=== PATIENT | male | born 1965 | race Caucasian/White ===

== ENCOUNTER 2020-07-21 07:04 | Day surgery (SDC) | payer BC, SELFPAY ==
--- NOTE | 2020-07-20 11:43 | P.CONAN_ITS ---
Documented by User: Amairani Bowers 07/20/20 11:45 HPI - Anesthesia Eval Consult details Narrative: 55yo M for Colonoscopy +ETOH [facility] Past Medical History Medical History Arthritis CAD (coronary artery disease) Elevated cholesterol ETOH abuse Gout DOMENICA (obstructive sleep apnea) Surgical History Surgical History H/O colonoscopy History of cardiac cath Social History Social History Smoking Status: Former smoker Use of substances other than those prescribed or required for medical reasons: No Advance Directives: No Advance Directives Information Provided: Yes Meds Allergies Allergy/AdvReac Type Severity Reaction Status Date / Time No Known Allergies Allergy Verified 07/21/20 07:20 Home Medications Medication Instructions Recorded Confirmed Last Taken Type aspirin 81 mg PO DAILY 07/21/20 07/21/20 07/19/20 History pravastatin 1 tab PO DAILY 07/21/20 07/21/20 Unknown History Exam Exam Date and Time: July 20, 2020 1143 Assessment and Plan Assessment Anesthesia Assessment: Chart Reviewed Documented by User: Shagufta Watkins 07/21/20 08:02 [facility] Past Medical History Medical History Arthritis CAD (coronary artery disease) Elevated cholesterol ETOH abuse Gout DOMENICA (obstructive sleep apnea) Surgical History Surgical History H/O colonoscopy History of cardiac cath Social History Social History Smoking Status: Former smoker Use of substances other than those prescribed or required for medical reasons: No Advance Directives: No Advance Directives Information Provided: Yes Meds Allergies Allergy/AdvReac Type Severity Reaction Status Date / Time No Known Allergies Allergy Verified 07/21/20 07:20 Home Medications Medication Instructions Recorded Confirmed Last Taken Type aspirin 81 mg PO DAILY 07/21/20 07/21/20 07/19/20 History pravastatin 1 tab PO DAILY 07/21/20 07/21/20 Unknown History Exam Airway Mallampati Class: II TM Dist: >3cm Neck ROM: Full Loose/Missing/Broken Teeth: No Heart: RRR Lungs: CTA Assessment and Plan Assessment Anesthesia Assessment: Anesthesia Plan Discussed and Chart Reviewed Final Anesthetic Review NPO: Yes ASA Class: III Final Preanesthetic Review: Meds/Allgs Chart Reviewed, Consent Obtained/Reviewed and Anes Risks/Benef Reviewed Patient Risk: Intermediate Procedure Risk: Low Anesthetic Plan Anesthetic Plan: MAC: Disposition: Standard PACU
[2020-07-21 07:21] VITALS: BMI 28.7
[2020-07-21 07:27] VITALS: BP 129/76; PULSE 48; RESP 16; TEMP 36.4; O2SAT 96
[2020-07-21] MEDS: Lactated Ringers 1,000 ML 100 ML IVCONT (07:34)
[2020-07-21 09:25] VITALS: BP 131/69; PULSE 45; RESP 16; TEMP 36.6; O2SAT 96
--- NOTE | 2020-07-21 09:26 | PM.OP ---
Brief Operative Note Date of Service: 07/21/20 Pre-op diagnosis: Screening Post-op diagnosis: other (Colon polyp) Procedure: Colonoscopy to the cecum and TI with biopsy and removal of polyp Surgeon: Magdy Mario Anesthesia: MAC Estimated blood loss (mL): 3.0 Pathology: other (A. Ascending colon polyp) Condition: stable Disposition: PACU
[2020-07-21 09:42] VITALS: BP 136/81; PULSE 50; RESP 16; TEMP 36.6; O2SAT 96
--- NOTE | 2020-07-21 10:17 | OP_ITS ---
SURGEON: Magdy Mario MD INDICATIONS: The patient presents for evaluation of colorectal cancer screening and personal history of tubular adenoma of the colon. Full consent has been obtained from him for this, including risks of bleeding and perforation. PREOPERATIVE DIAGNOSIS: POSTOPERATIVE DIAGNOSIS: PROCEDURE PERFORMED: Colonoscopy to cecum and terminal ileum with biopsy and removal of polyp. ESTIMATED BLOOD LOSS: COMPLICATIONS: ANESTHESIA: Monitored anesthesia care. ASSISTANTS: SPECIMENS: PREOPERATIVE DIAGNOSES: Colorectal cancer screening and personal history of tubular adenoma of the colon. POSTOPERATIVE DIAGNOSES: Colorectal cancer screening and personal history of tubular adenoma of the colon, colon polyp, diverticulosis and internal hemorrhoids. DESCRIPTION OF PROCEDURE: The patient was placed in the left lateral decubitus position. The digital rectal exam revealed no abnormalities. The Olympus video pediatric colonoscope was entered into the rectum and advanced easily to the cecum. Once in the cecum, I did identify normal-appearing cecal pouch with appendiceal orifice and a normal-appearing ileocecal valve. The terminal ileum was cannulated and appeared normal. The scope was withdrawn back in the colon. The entire cecum and ileocecal valve appeared normal. The scope was slowly withdrawn assessing all mucosal surfaces carefully. Preparation was excellent. In the proximal ascending colon, was a flat approximately 5 mm polyp, which was biopsied and completely removed with cold biopsy forceps. I did not visualize any other polyps, colitis, nor angiodysplasia. There was a mild amount of sigmoid diverticulosis. In the rectum, scope was retroflexed visualizing small internal hemorrhoids, but no other pathology. The rectal mucosa appeared normal. The scope was straightened out and withdrawn from the patient. He tolerated the procedure well and was returned to the recovery area in stable condition. IMPRESSION: 1. Small colon polyp, status post biopsy and removal. 2. Diverticulosis. 3. Internal hemorrhoids. PLAN: The results of the pathology will be checked. I would recommend a repeat colonoscopy in 5 years for further surveillance. He will otherwise see me on a p.r.n. basis. He was advised to resume his aspirin in [address]/WISAM / [id number]
== END 2020-07-21 10:07 | disposition home or self-care (01) ==
PROVIDERS: PCP Internal Medicine; Visit Provider Internal Medicine
PROC: 0DJD8ZZ Inspection of Lower Intestinal Tract, Via Natural or Artificial Opening Endoscopic (ICD-10-PCS; CPT 45378; principal; 2020-07-21 08:20)
DX: Z12.11 Encounter for screening for malignant neoplasm of colon (principal); D12.2 Benign neoplasm of ascending colon; K57.30 Diverticulosis of large intestine without perforation or abscess without bleeding; K64.8 Other hemorrhoids; Z86.010 Personal history of colon polyps
CPT/HCPCS: 45380; 88305; J3010

== ENCOUNTER 2022-12-26 14:34 | Outpatient (AMB) | payer BC, SELFPAY ==
--- NOTE | 2022-12-26 15:00 | A.OFFVIS_ITS ---
Intake Vital Signs 12/26/22 15:01 Height 5 ft 10 in Weight 195 lb BMI 28.0 Intake Visit Reasons: FC - right ankle fx Intake Note: Rashard 57 yr old male presents today for his right ankle injury. States about 1 month ago, while exercising he felt a sharp pain, later at bed time he noticed his ankle was swollen. Seen in urgent care where he was given a air cast. Currently states he still has swelling and pa in with weight bearing. States he has concerns of a fracture. Denies numbness or tingling. Xrays updated in office. Allergies No Known Allergies Allergy (Verified 12/26/22 15:05) HPI FC - right ankle fx HPI Details 57-year-old male who presents in the off ice today, as a new patient, for an evaluation of right ankle pain. The patient reports a month ago, in 11/2022, he was exercising and felt a sharp pain in the right ankle. He states later that day at bed time he noticed his ankle had edema. He confirms being seen in Urgent Care where he was placed in an air cast. He states he still has edema and pain with weight bearing. He is concerned the ankle is fractured. He denies numbness or tingling. He states he injured the ankle doing circles. He works with [employer]. He works in [place] and states most of the pain is when he is driving. He has a trip planned with his son to be gone for 5 weeks. 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 Review of Systems Const All systems reviewed & are unremarkable except as noted in HPI and below Physical Exam Vital Signs: BMI result Body Mass Index 28.0 Const General: cooperative and no acute distress Orientation/consciousness: patient oriented x3 Resp Effort & Inspection: normal respiratory effort and able to speak in complete sentences Cardio Rate: regular rate Peripheral pulses: Peripheral pulses 2+ throughout GI Palpation (GI): Soft to palpation Skin General skin exam: no rashes or lesions noted Lesions: no lesions Rashes: no rashes Neuro General: patient oriented x3 Extrem Other: Right ankle: Lateral moderate edema. Able to dorsiflex and plantarflex with minimal discomfort. Able to perform inversion and eversion slight motion with pain. Sensation intact. Pedal pulse intact. Assessment & Plan Assessment & Plan (1) Right ankle sprain: Code(s): S93.401A - Sprain of unspecified ligament of right ankle, initial encounter Qualifiers: Encounter type: initial encounter Involved ligament of ankle: unspecified ligament Qualified Code(s): S93.401A - Sprain of unspecified ligament of right ankle, initial encounter Plan Mr. Figueroa is a 57-year-old male who presents in the office today, as a new patient, for an evaluation of right ankle pain. The patient reports a month ago, in 11/2022, he was exercising and felt a sharp pain in the right ankle. He states later that day at bed time he noticed his ankle had edema. He confirms being seen in Urgent Care where he was placed in an air cast. He states he still has edema and pain with weight bearing. He is concerned the ankle is fractured. He denies numbness or tingling. He states he injured the ankle doing circles. 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 He works in [place] and states most of the pain is when he is driving. He has a trip planned with his son to be gone for 5 weeks. The patient will be placed in a tall walking boot, off the shelf, while in the office today. He was educated in the importance of elevating the ankle about the level of his heart. He demonstrates understanding. He was instructed that due to the boot he is unable to drive. He was given an out of work note until his follow up. He plans on leaving on a trip on 01/27 for 5 weeks. I would like to see him back before he leaves. Follow up will be on 01/17/2023, or sooner if needed. X-rays of the right ankle which were obtained while in the office today and were reviewed by me, Estrellita Viveros PA-C, revealed no acute fracture or dislocation. Small defect at the distal fibula that may correlate to an avulsion injury. Orders: Orders XR ankle RT min 3V 12/26/22 M25.579 - Pain in unspecified ankle and joints of unspecified foot Patient Instructions: Scribed for Estrellita Viveros PA-C by Kim Ambriz electromedical service engineer, on 12/26/2022 at 2:37 pm, EST. Coding Level of Care Code New Pt Level 4 (33219) Diagnoses Sprain of right ankle, unspecified ligament, initial encounter S93.401A Encounter type: initial encounter Involved ligament of ankle: unspecified ligament
[2022-12-26 15:01] VITALS: BMI 28.0
== END 2022-12-26 15:34 | disposition home or self-care (01) ==
PROVIDERS: PCP Internal Medicine; Visit Provider Physician Assistant
DX: S93.401A Sprain of unspecified ligament of right ankle, initial encounter (principal)
CPT/HCPCS: 99203

== ENCOUNTER 2022-12-26 17:24 | Outpatient (REF) | payer BC, SELFPAY ==
--- NOTE | ~2022-12-26 | XR_ITS ---
EXAMINATION: XR ANKLE, RIGHT CLINICAL INFORMATION: Ankle pain COMPARISON: Radiographs 11/14/2022 TECHNIQUE: AP, lateral, and mortise views of the right ankle. FINDINGS: Soft tissue swelling about the lateral malleolus progressed from prior. There is a similar punctate osseous fragment along the lateral talar process which may reflect sequelae of prior avulsion fracture. Large tibiotalar joint effusion new from prior consider correlation with any symptoms of synovitis Mild degenerative changes of the ankle with degenerative spurring of the dorsal midfoot and tibiotalar joint and plantar calcaneal spurring. XR/XR ankle RT min 3V IMPRESSION: 1. Soft tissue swelling about the lateral malleolus progressed from prior. There is a similar punctate osseous fragment along the lateral talar process which may reflect sequelae of prior avulsion fracture. 2. Large tibiotalar joint effusion new from prior consider correlation with any symptoms of synovitis. 3. Mild degenerative changes of the ankle.
== END 2022-12-26 17:25 | disposition home or self-care (01) ==
LOC: HO.HOSX 17:24
PROVIDERS: Visit Provider Physician Assistant
DX: S93.401D Sprain of unspecified ligament of right ankle, subsequent encounter (principal); M25.571 Pain in right ankle and joints of right foot; X58.XXXD Exposure to other specified factors, subsequent encounter
CPT/HCPCS: 73610

== ENCOUNTER → 2023-01-02 14:43 | Outpatient (BNVA) | payer BC, SELFPAY | PROVIDERS: PCP Internal Medicine; Visit Provider Physician Assistant ==

== ENCOUNTER 2023-01-17 13:05 | Outpatient (AMB) | payer BC, SELFPAY ==
--- NOTE | 2023-01-17 13:10 | MHC.OFFVIS ---
Intake Intake Visit Reasons: OV- right ankle fx-follow up Intake Note: Rashard is a 57 year old male who presents today for a follow up for his ankle pain. Patient reports he is doing better. He states wearing the boot off and on during the day. Allergies No Known Allergies Allergy (Verified 01/17/23 13:13) HPI OV- right ankle fx-follow up HPI Details 58-year-old male who presents in the office today for a follow up of a right ankle sprain, which occurred in 11/2022 status post exercising. The patient reports he is doing better. He states he wears the boot intermittent through out the day. He reports an occasional sharp stabbing sensation between the 4th and 5th metatarsal heads, but does not have tenderness to palpation and reports it is intermittent. 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 No ecchymosis, erythema, or edema. Patient is able to demonstrate dorsiflexion, plantar flexion, pronation and supination. Negative anterior drawer. Sensation intact. Pedal Pulse intact. Assessment & Plan Assessment & Plan (1) Right ankle sprain: Code(s): S93.401A - Sprain of unspecified ligament of right ankle, initial encounter Qualifiers: Encounter type: initial encounter Involved ligament of ankle: unspecified ligament Qualified Code(s): S93.401A - Sprain of unspecified ligament of right ankle, initial encounter Plan Mr. Figueroa is a 58-year-old male who presents in the office today for a follow up of a right ankle sprain, which occurred in 11/2022 status post exercising. The patient reports he is doing better. He states he wears the boot intermittent through out the day. He reports an occasional sharp stabbing sensation between the 4th and 5th metatarsal heads, but does not have tenderness to palpation and reports it is intermittent. The patient will return to normal activities as tolerated. If he continues to have pain between the 4th and 5th metatarsals, he will contact the office and I will place a referral to Podiatry for further evaluation and treatment. Follow up will be PRN, or sooner if needed. Patient Instructions: Scribed for Estrellita Viveros PA-C by Kim Ambriz medical scientific liaison, on 01/17/2023 at 1:16 pm, EST. Coding Level of Care Code Est Pt Level 3 (25403) Diagnoses Sprain of right ankle, unspecified ligament, initial encounter S93.401A Encounter type: initial encounter Involved ligament of ankle: unspecified ligament
== END 2023-01-17 13:47 | disposition home or self-care (01) ==
PROVIDERS: PCP Internal Medicine; Visit Provider Physician Assistant
DX: S93.401D Sprain of unspecified ligament of right ankle, subsequent encounter (principal)
CPT/HCPCS: 99213

== ENCOUNTER → 2023-01-17 13:05 | Outpatient (BNVA) | payer BC, SELFPAY | PROVIDERS: PCP Internal Medicine; Visit Provider Physician Assistant ==

== ENCOUNTER 2023-05-12 06:16 | Outpatient (REF) | payer BC, SELFPAY ==
--- NOTE | ~2023-05-12 | XR_ITS ---
EXAMINATION: XR AP STANDING VIEW OF BILATERAL KNEES XR KNEE, LEFT CLINICAL INFORMATION: Pain in unspecified knee. COMPARISON: None. TECHNIQUE: AP standing view of bilateral knees. Lateral and sunrise views of the left knee. FINDINGS: Left knee: Large suprapatellar effusion. Moderate medial joint space narrowing. Tiny marginal osteophytes. Right knee: Single AP view of the right knee demonstrates mild medial joint space narrowing. XR/XR knee standing BI IMPRESSION: 1. Large left suprapatellar effusion with moderate medial joint space narrowing. 2. Single AP view of the right knee demonstrates mild medial joint space narrowing.
--- NOTE | ~2023-05-12 | XR_ITS ---
EXAMINATION: XR AP STANDING VIEW OF BILATERAL KNEES XR KNEE, LEFT CLINICAL INFORMATION: Pain in unspecified knee. COMPARISON: None. TECHNIQUE: AP standing view of bilateral knees. Lateral and sunrise views of the left knee. FINDINGS: Left knee: Large suprapatellar effusion. Moderate medial joint space narrowing. Tiny marginal osteophytes. Right knee: Single AP view of the right knee demonstrates mild medial joint space narrowing. XR/XR knee LT 2V IMPRESSION: 1. Large left suprapatellar effusion with moderate medial joint space narrowing. 2. Single AP view of the right knee demonstrates mild medial joint space narrowing.
== END 2023-05-12 06:17 | disposition home or self-care (01) ==
LOC: HO.HOSX 06:16
PROVIDERS: Visit Provider Physician Assistant
DX: M25.562 Pain in left knee (principal)
CPT/HCPCS: 73560; 73565

== ENCOUNTER 2023-05-12 08:42 | Outpatient (AMB) | payer BC, SELFPAY ==
--- NOTE | 2023-05-12 08:54 | MHC.OFFVIS ---
Intake Vital Signs 05/12/23 09:10 Height 5 ft 10 in Weight 195 lb BMI 28.0 Intake Visit Reasons: NewProb- LT Knee pain x2 weeks Intake Note: Rashard is a 58 year old male who presents today for a evaluation of his left knee pain. Patient reports off and on pain for 2 weeks. He states that his pain is worse when sitting for a long time, using the stairs and walking. Patient reports icing his knee with elevation which gave him mild relief. His pain today is a way better than it was last week per patient. Patient takes Advil which give him relief. Allergies No Known Allergies Allergy (Verified 05/12/23 09:09) HPI NewProb- LT Knee pain x2 weeks HPI Details 58-year-old male who presents in the office today for an evaluation of left knee pain. The patient reports intermittent pain for 2 weeks. He reports the pain increases with use of stairs, when sitting for long period of time, and ambulating. He reports applying ice gives mild relief. He states his pain while in the office has improved since last week. He confirms taking Advil which gives him relief. 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 No ecchymosis, erythema, or joint effusion. No tenderness to palpation to the medial or lateral joint lines. Full knee extension and flexion. Negative Cheko's. NVI. Assessment & Plan Assessment & Plan (1) Left knee pain: Code(s): M25.562 - Pain in left knee Qualifiers: Chronicity: unspecified Qualified Code(s): M25.562 - Pain in left knee Plan Mr. Figueroa is a 58-year-old male who presents in the office today for an evaluation of left knee pain. The patient reports intermittent pain for 2 weeks. He reports the pain increases with use of stairs, when sitting for long period of time, and ambulating. He reports applying ice gives mild relief. He states his pain while in the office has improved since last week. He confirms taking Advil which gives him relief. The patient has a history of gout. I asked if this felt a gout flare up and he reports it could have been, but his symptoms have drastically improved. Last week was the peak of his symptoms, however he also reports he was doing deep squats with weights which could having contributed to over use. We discussed the option of cortisone injection that would help with any remaining irritation, inflammation, or gouty flare up as a possibility. However, he reports his symptoms are improving, therefore he would like to defer at this time. Should his symptoms return or worsen, he will contact the office for a cortisone injection. Follow up will be PRN, or sooner if needed. X-rays of the left knee which were obtained while in the office today and were reviewed by me, Estrellita Viveros PA-C, revealed No acute fracture or dislocation. Slight narrowing of the medial compartment. Orders: Orders XR knee standing BI Today M25.569 - Pain in unspecified knee XR knee LT 2V Today M25.569 - Pain in unspecified knee Patient Instructions: Scribed for Estrellita Viveros PA-C by Kim Ambriz medical reception, on 05/12/2023 at 8:46 am, EST. Coding Level of Care Code Est Pt Level 3 (63571) Diagnoses Left knee pain, unspecified chronicity M25.562 Chronicity: unspecified
[2023-05-12 09:10] VITALS: BMI 28.0
== END 2023-05-12 09:26 | disposition home or self-care (01) ==
PROVIDERS: PCP Internal Medicine; Visit Provider Physician Assistant
DX: M25.562 Pain in left knee (principal)
CPT/HCPCS: 99213

== ENCOUNTER 2024-09-07 18:23 | Emergency (ER) | payer BC, SELFPAY ==
--- NOTE | 2024-09-07 19:04 | ED_ITS ---
HPI - Head Injury General Chief complaint: Wound/Laceration Stated complaint: Lip Lac Time Seen by Provider: 09/07/24 22:23 History of Present Illness ED Provider: Lobo ROMERO Narrative: The patient is a 59-year-old male who was working on his car when he accident ally hit himself in the face with a wrench she was using. He sustained a small laceration to the skin above the upper lip. He had no loss of consciousness. No dental injury. No other injury. Last tetanus shot was in 2020. Related Data Home Medications ?Medication ?Instructions ?Recorded ?Confirmed aspirin 81 mg tablet 81 mg PO DAILY 07/21/20 07/21/20 pravastatin 80 mg tablet 1 tab PO DAILY 07/21/20 07/21/20 Allergies Allergy/AdvReac Type Severity Reaction Status Date / Time No Known Allergies Allergy Verified 09/07/24 19:06 Review of Systems Review of Systems: Yes all other systems are reviewed and are negative [facility] Past Medical History Medical History Elevated cholesterol ETOH abuse CAD (coronary artery disease) Arthritis Gout DOMENICA (obstructive sleep apnea) Surgical History H/O colonoscopy History of cardiac cath Social History Social History (Updated 05/12/23 @ 09:09 by Ragini Chamorro) Alcohol intake: current Patient Tobacco Use Status: Current everyday Tobacco user Advance Directives: No Advance Directives Information Provided: Yes Do you have a plan to hurt others: No Plan Current occupational status: employed 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 He has an obvious injury to his upper lip but otherwise he looks well. HEENT: Other: The patient has a 3 cm laceration to the skin of his face above his upper lip. The laceration is an oblique laceration. The lower end of the laceration is in the middle of his upper lip, in the dry mucosa of the upper lip. The laceration extends upward and laterally to the left into the skin above the left upper lip. The laceration goes through the vermilion border very obliquely. The majority of the laceration is in the skin and not in the lip. The portion in the lip is approximately 5 mm. No dental injury. Eyes: General: appearance normal, both eyes and all related structures Neck: Neck: Yes normal visual inspection and Yes full ROM Resp: Effort & Inspection: normal respiratory effort Skin: Other: There is a 3 cm laceration on the skin of the face that is mostly in the skin above the left upper lip. It is an oblique laceration. The lower medial end of the laceration extends through the vermilion border into the dry mucosa of the upper lip, extending about 5 cm into the lip itself. Neuro: Other: The patient is awake and alert with a normal mental status. Cranial nerves are intact. He moves his extremities normally and appropriately. Course Course Course Narrative: This is a Rapid Medical Exam performed in triage by Iraida Sheriff PA-C. Full HPI, ROS and PE to be performed by primary ED provider. 59 yo M presenting to the ED c/o lip laceration s/p accidentally punching himself in the mouth while fixing his car breaks. States spring gave way. Tetanus unknown. Takes ASA. denies N/V, LOC PE: +upper lip lac through vermilion border Plan: TDap, lac repair Medications Administered Discontinued Medications Generic Name Dose Route Start Last Admin Trade Name Freq PRN Reason Stop Dose Admin Diphtheria/Tetanus/Acell Pertussis 0.5 ml 09/07/24 19:06 09/07/24 22:13 Diphth,Pertus(Acell),Tet Adult 0.5 Ml Syringe IM 09/07/24 19:07 Not Given .ONCE ONE Lidocaine HCl 5 ml 09/07/24 22:27 09/07/24 22:38 Lidocaine Hcl 1 % Mpf 5 Ml Vial INFILTRATI 09/07/24 22:28 5 ml ONCE ONE Administration Medical Decision Making Medical Decision Making MDM Narrative: The patient is in the emergency room for evaluation of a facial laceration that extends slightly across the vermilion border into the upper lip. The wound is very oblique and the angle it which the wound crosses the vermilion border is very oblique. The skin around the wound was prepped with Betadine. The wound was anesthetized with 1% lidocaine. I put some lidocaine for field anesthesia at the infraorbital nerve on the left side through the oral mucosa above the left upper canine tooth. I also injected some lidocaine locally into the wound. The wound is copiously irrigated with normal saline. No foreign matter was in the wound. In closing the wound I placed my initial suture to the skin just above the verm ilion border. The oblique angle at which the wound crosses the vermilion border made this somewhat difficult. Total of 5 simple interrupted stitches using 6 0 Prolene were placed. Adequate wound edge approximation was achieved and I believe the vermilion border was adequately approximated. The patient is up-to-date on tetanus. Wound care instructions were reviewed with the patient. He should have the sutures removed in 6-7 days. Procedures Laceration Laceration 1: Site: face (The laceration is primarily to the skin above the left upper lip. It crosses the vermilion border near the midline of the upper lip and extends slightly into the lip itself.) Side (If applicable): left Size (cm): 3 Description: linear Depth: simple, single layer Local Anesthetic: lidocaine 1% Amount of anesthesia used (mL): 4 Pre-repair: wound explored, irrigated extensively and deep structures intact Skin layer closed with: nylon Size (cm): 6-0 Number of sutures: 5 Discharge Plan Discharge Clinical Impression: Facial laceration Patient Disposition: Home, Self-Care Instructions: Laceration (ED) Additional Instructions: You have 5 stitches in your wound which should be removed on Friday or Friday. You may contact your primary care doctor's office and see if you can get an appointment for suture removal. If you are unable to get the sutures removed in your primary care doctor's office you may go to an urgent care center or return to the emergency room for suture removal. Apply bacitracin twice a day for 2 days. Keep the wound clean and dry. You may shower. If you have any concerns that you are developing a wound infection return to the emergency room for evaluation. Prescriptions: No Action pravastatin 80 mg tablet 1 tab PO DAILY aspirin 81 mg Tablet 81 mg PO DAILY Referrals: Jaxon Shetty MD [Primary Care Provider] - (suture removal) Print Language: Irish
[2024-09-07 19:05] VITALS: BP 164/86; PULSE 77; RESP 16; TEMP 36.2; O2SAT 95; BMI 28.7
--- NOTE | 2024-09-07 22:13 | PC.NURSE ---
Harshal held d/t pt rec in 2020
[2024-09-07 22:14] VITALS: BP 151/96; PULSE 68; RESP 189; O2SAT 96
[2024-09-07] MEDS: Lidocaine HCl 1 % MPF 5 ML VIAL INFILTRATI (22:38)
[2024-09-07] MEDS: cephALEXin 500 MG CAPSULE 1000 MG PO (23:15)
[2024-09-07] MEDS: Bacitracin Oint 0.9 GM PACKET 1 APPL TOPICAL (23:15)
--- NOTE | 2024-09-07 23:22 | PC.NURSE ---
Took over care from ARUN Brito, Medicated per jun, reviewed discharge instructions with pt. pt verbalized understanding, no sign of distress upon discharge, pt had a steady gait.
[2024-09-07 23:24] VITALS: BP 151/96; PULSE 68; RESP 189; TEMP 36.2; O2SAT 96
== END 2024-09-07 23:25 | disposition home or self-care (01) ==
PROVIDERS: Emergency Provider Emergency Medicine; PCP Internal Medicine
DX: S01.511A Laceration without foreign body of lip, initial encounter (principal); R51.9 Headache, unspecified; X58.XXXA Exposure to other specified factors, initial encounter; Y93.9 Activity, unspecified; Y92.9 Unspecified place or not applicable; Y99.8 Other external cause status
CPT/HCPCS: 12013; 99284; J2003

== ENCOUNTER 2025-03-17 14:33 | Outpatient (AMB) | payer BC, SELFPAY ==
[2025-03-17 14:54] VITALS: BMI 28.7
--- NOTE | 2025-03-17 14:54 | A.OFFVIS_ITS ---
Vital Signs 03/17/25 14:54 Height 5 ft 10 in Weight 200 lb BMI 28.7 Intake Visit Reasons: NewProb-Right Arm Shoulder pain Intake Note: Rashard is a 60 year old right hand dominant male who presents today for a a evaluation of his right shoulder pain. Patient reports ongoing pain for about 6 weeks. He states that his pain is through out the whole shoulder. Patient notices that the pain travels down the arm. He notices that his pain is worse when he is lifting and moving. No injury, injections or surgeries. He does go camping over the summer where he uses an axe. One day he was cutting wood and a piece of the metal of the axe hit his right ring finger. Patient is wondering if his pain is related to the metal in his finger. Patient hasn't been seen for the piece of metal in his finger. Allergies No Known Allergies Allergy (Verified 03/17/25 14:54) HPI HPI NewProb-Right Arm Shoulder pain: Details: Mr. Figueroa is a 60-year-old right-hand dominant male who presents to the office today for evaluation of right shoulder pain. He reports his shoulder pain has been present for the past 6 months. He denies any acute injury or trauma. He notes that his pain is worse with overhead reaching and reports difficulty sleeping at night due to pain that radiates from the shoulder down to the elbow. He works in [employer] and is constantly performing overhead reaching due to his profession. He reports taking Aleve as needed for severe pain. He denies any history of physical therapy or cortisone injection. 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 Able to reach back pocket. Negative Jay's. Negative cross-body reach. 4-5 strength with empty can. Negative drop arm. NVI. Psych Appearance: grossly normal Mental Status: mental status grossly normal Attitude: cooperative Office Procedures AMB Joint Injection/Aspiration Joint Injection/Aspiration Primary Site: Right Shoulder Prep: site was prepped using aseptic technique, ethochloride spray was applied and injection warnings given Injected: 40 mg of, Decadron, with 3 mL of, 1% plain Lidocaine, 0.25% Bupivacaine and in the subcromial space Approach Used: posterolateral Procedure: The patient tolerated the procedure well, but had some pain with the injection and there was some relief with the local anesthesia Coding 69500 - Large joint Procedure code (CPT) selection complete Assessment & Plan Assessment & Plan (1) Painful arc syndrome of right shoulder: Code(s): M75.101 - Unspecified rotator cuff tear or rupture of right shoulder, not specified as traumatic Category: Medical Plan Mr. Figueroa is a 60-year-old right-hand dominant male who presents to the office today for evaluation of right shoulder pain. He reports his shoulder pain has been present for the past 6 months. He denies any acute injury or trauma. He notes that his pain is worse with overhead reaching and reports difficulty sleeping at night due to pain that radiates from the shoulder down to the elbow. He works in [employer] and is constantly performing overhead reaching due to his profession. He reports taking Aleve as needed for severe pain. He denies any history of physical therapy or cortisone injection. The patient was offered a cortisone injection in right shoulder. The patient was explained the risks, benefits, and alternatives to receiving this injection. After receiving consent for the injection, the patient had the procedure done while in the office today. The patient tolerated the procedure well with no complications. The risks, benefits, and alternatives to a corticosteroid injection were discussed with the patient, including the potential benefits of decreased inflammation and pain, improved function, and diagnostic value. Risks were reviewed, including post-injection flare, skin or fat atrophy, transient facial flushing, temporary elevation in blood glucose, bruising, and rare but serious complications such as infection, tendon weakening or rupture, and cartilage damage with repeated injections. Procedure-related discomfort and possible vasovagal symptoms were also explained. Alternatives were reviewed, including NSAIDs, physical therapy, activity modification, bracing, ice/heat, weight management, hyaluronic acid injections when appropriate, PRP or other orthobiologics, oral steroids, surgery depending on pathology, and observation. The patient verbalized understanding and elected to proceed. After receiving consent for the injection, the patient had the procedure done while in the office today. The patient tolerated the procedure well with no complications. Additionally, I generated a prescription for physical therapy in which the patient is agreeable to attend. He will attend physical therapy in conjunction with this most recent cortisone injection. If the patient continues to have pain after 2 months of continued physical therapy the next step would be to order an MRI to further evaluate the integrity of the right shoulder and surrounding structures. Follow-up will be PRN, or sooner if needed X-rays of the right shoulder which were obtained while in the office today and were reviewed by me, Estrellita Viveros PA-C, revealed no acute fracture or dislocation. Orders: Orders XR shoulder RT min 2V Today M25.519 - Pain in unspecified shoulder PT Evaluation and Treatment Today M75.101 - Unspecified rotator cuff tear or rupture of right shoulder, not specified as traumatic Coding Level of Care Code Est Pt Level 3 (62246) Diagnoses Painful arc syndrome of right shoulder M75.101 CPT Codes Coding - 45248 Large joint: 42820 - Large joint ([id number])
== END 2025-03-17 15:43 | disposition home or self-care (01) ==
LOC: HO.HOS 14:34
PROVIDERS: PCP Internal Medicine; Visit Provider Physician Assistant
DX: M75.101 Unspecified rotator cuff tear or rupture of right shoulder, not specified as traumatic (principal)
CPT/HCPCS: 20610; 99213

== ENCOUNTER → 2025-03-17 14:36 | Outpatient (BNV) | payer BC, SELFPAY | PROVIDERS: Visit Provider Radiology Diagnostic Ultrasound | DX: M19.011 Primary osteoarthritis, right shoulder (principal) | CPT/HCPCS: 73030 ==

== ENCOUNTER 2025-03-17 15:12 | Outpatient (REF) | payer BC, SELFPAY ==
--- NOTE | ~2025-03-17 | XR_ITS ---
EXAMINATION: XR SHOULDER, RIGHT CLINICAL INFORMATION: M25.519 - Pain in unspecified shoulder COMPARISON: None available. TECHNIQUE: AP external rotation, Grashey, scapular Y, and axillary views of the right shoulder. FINDINGS: No visible acute fracture, dislocation or suspicious bony lesion. Mild acromioclavicular arthritis. Glenohumeral and acromioclavicular alignment is anatomic with normal joint space. No abnormal soft tissue calcifications. XR/XR shoulder RT min 2V IMPRESSION: Mild acromioclavicular arthritis. Electronically signed by: Karel Acevedo MD 03/17/2025 02:56 PM EST
--- OUTSIDE RECORDS SUMMARY | 2025-03-18 19:11 | XMS_ITS | Clinical Summary ---
Author Organization [facility] Address [address] [place] [address] Care Team Providers Care Medical Administrative Specialist Name Role Phone Unavailable Primary Care Provider Unavailabl e Social History Tobacco Use Types Packs/Day Years Used Date Smoking Tobacco: Never Assessed Sex and Gender Information Value Date Recorded Sex Assigned at Not on file Legal Sex Male 10:45 AM EST Gender Identity Not on file Sexual Orientation Not on file Plan of Treatment Health Maintenance Due Date Last Done Comments Hepatitis C Screening 1965 DTaP/Tdap/Td (1 - Tdap) 1981 Pneumococcal 50+ years (1 of 1 - PCV) 2013 Zoster (Shingrix) (1 of 2) 2013 COVID-19 Vaccine (1 - 2024-2 6 season) 2024 Influenza (#1) 2024 RSV (1 - 1-dose 75+ series) 2038 HPV Vaccine (No Doses Required) Completed Hep A Aged Out No longer eligi ble based on patient's age to complete this topic Hep B Aged Out No longer eligi ble based on patient's age to complete this topic Hib Aged Out No longer eligi ble based on patient's age to complete this topic Meningococcal ACWY Aged Out No longer eligible based on patient's age to complete this topic Zoster (Zostavax) Discontinued
--- OUTSIDE RECORDS SUMMARY | 2025-03-18 19:11 | XMS_ITS | Patient Health Record ---
Author Organization [facility] Address [address] [place] [id number] Care Team Providers Care Geographical Historian Name Role Phone Sena CONSTANTINO, Jaxon Primary Care Provider Magdy Hernández [phone] Allergies Allergen (clinical drug ingredient) Drug/Non Drug Allergy documented on EMR Reaction Allergy Type Onset Date Status rosuvastatin Crestor myalgias Drug Allergy Acti ve Reason For Referral No Information Medications Medication SIG (Take, Route, Frequency, Duration) Notes Start Date End Date Status Viagra 100 MG Tablet 1 tablet as needed Orally Once a day; Duration: 30 day(s) Active Aspirin 81 Active Pravastatin Sodium 80 MG Tablet 1 tablet Orally Once a day; Duration: 30 day(s) Active Naproxen DR 500 MG Tablet Delayed Release 1 tablet Orally as needed rarely Active Immunizations Vaccine Route Administration Date Status Comme nts Influenza Unknown 06/23/2020 Refused Social History Tobacco Use: Social History Observation Description Date Details (start date - stop date) Former Smoker NA - NA Social History Drugs/Alcohol: Social Info Question Answer Notes Alcohol Screen Did you have a drink containing alcohol in the past year? Yes How often did you have a drink containing alcohol in the past year? 4 or more times a week (4 points) How many drinks did you have on a typical day when you were drinking in the past year? 5 or 6 drinks (2 points) How often did you have 6 or more drinks on one occasion in the past year? Weekly (3 points) Points 9 Interpretation Positive Tobacco Use: Social Info Question Answer Notes Tobacco Use/Smoking Patient is a former smoker How long has it been since you last smoked? 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 Section Notes: Nonsmoker; no sig alcohol Problems Problem Type SNOMED Code ICD Code Onset Dates Problem Status W/U Status Risk Notes Problem Screening for malignant neoplasm of colon (007601580) Encounter for screening for malignant neoplasm of colon (Z12.11) Active confirmed Problem History of adenomatous polyp of colon (880830902) History of adenomatous polyp of colon (Z86.010) Active confirmed Problem Preprocedural examination (578250215543605) Preprocedural examination (Z01.818) Active confirmed Plan Of Treatment Pending Test Test Name Order Date Pathology 07/21/2020 Future Test Test Name Order Date COLONOSCOPY 03/03/2014 COLONOSCOPY 06/23/2020 Insurance Providers Payer Name Payer Address Payer Phone Subscriber Number Group Number Insured Name Patient Relationship to Insured Coverage Start Date Coverage End Date [facility] [place] [employer] [address] [place] [address] [id number] JOANNA MALONEY Self - patient is the insured Medical (General) History Medical History History ICD Code Colonoscopy--09-04-2009-- 1.5 cm tubular adenoma removed from the distal rectum, small internal hemorrhoids Sleep apnea--does not use a CPAP regular ly Denies SC,DM,CVA,Lung disease,renal dise ase Gout Arthritis Negative screening colonoscopy in 2014 Negative cardiac cath in [place] in 2016 except for 1 vessel with some degree of blockage, but no stent
== END 2025-03-17 15:13 | disposition home or self-care (01) ==
LOC: HO.HOSX 15:12
PROVIDERS: Visit Provider Physician Assistant
DX: M75.101 Unspecified rotator cuff tear or rupture of right shoulder, not specified as traumatic (principal)
CPT/HCPCS: 20610; 73030; J0665; J1100; J2003